=== PATIENT | male | born 1960 | race Two or more races ===

== ENCOUNTER 2021-01-04 09:57 | Emergency (ER) | payer OTHER ==
[~2021-01-04] VITALS: Ht 170.2 cm; Wt 79.4 kg
[2021-01-04] MEDS ORDERED: PANADOL EXTRA500 MG PO (10:26)
[2021-01-04] MEDS ORDERED: NORFLEX100MG PO (13:28)
[2021-01-04] MEDS ORDERED: MEDROLPACK PO (13:31)
== END 2021-01-04 14:11 | disposition home or self-care (01) ==
LOC: ER 09:57
DX: M54.2 Cervicalgia (principal)